=== PATIENT | female | born 1945 | race Caucasian/White ===

== ENCOUNTER 2022-05-13 07:31 | Inpatient (IN) ==
[2022-05-13] MEDS ORDERED: 0.9 % SODIUM CHLORIDE 1,000 ML IV ONE ×2 (07:42→07:43)
[2022-05-13 08:10] LABS: POC Calcium, Ionized 1.09 (1.16-1.32); POC Creatinine 1.2 (0.6-1.2); POC Potassium 3.2 (3.3-5.1)
[2022-05-13] MEDS: ONDANSETRON 4 MG/2 ML VIAL IV ONE ×2 (08:15→09:30)
--- NOTE | 2022-05-13 08:24 | Emergency Department Note ---
HPI General Chief complaint: Nausea/Vomiting/Diarrhea Stated complaint: nausea/vomiting/diarrhea, hypotensive Time Seen by Provider: 05/13/22 07:43 Source: patient and EMS Mode of arrival: EMS Limitations: no limitations History of Present Illness HPI Narrative: Narrative: Patient presents to the ED via EMS with complaints of hypotension. Patient was found to have systolic blood pressure less than 90 in the field. EMS was called because patient said that she fell this morning but does not know if she hit her head or lost consciousness. She reports she just feels weak. She reports nausea vomiting diarrhea over the last 3 days but states she did not have any today. She denies fever, chills, hematemesis, melena, hematochezia, dysuria, hematuria, urinary frequency. She denies any history of hypertension or antihypertensive medication. Patient reports decreased appetite. Patient denies any other alleviating or aggravating factors. Related Data Previous Rx's Medication Instructions Recorded pen needle, diabetic 33 gauge x #200 ea 10/24/18/16" (Comfort EZ Pen Mullan) insulin aspart U-100 100 unit/mL 50 unit (0.5 mL) subcut QHS #15 mL 03/27/21 (3 mL) subcutaneous pen (Novolog FlexPen U-100 Insulin aspart) clobetasol 0.05 % topical cream 1 applic topical BID 2 weeks #30 09/10/21 grams insulin aspart U-100 100 unit/mL 17 unit (0.17 mL) subcut TID 10/02/21 (3 mL) subcutaneous pen (Novolog diabetes #15 mL FlexPen U-100 Insulin aspart) cholecalciferol (vitamin D3) 1,250 50,000 unit PO QWEEK #12 caps 02/24/22 mcg (50,000 unit) capsule atorvastatin 40 mg tablet 40 mg PO QDAY #90 tabs 03/12/22 sertraline 50 mg tablet 50 mg PO QDAY #90 tabs 03/12/22 insulin glargine 100 unit/mL (3 45 unit (0.45 mL) subcut QPM #15 mL 03/27/22 mL) subcutaneous pen levothyroxine 125 mcg tablet 125 mcg PO QDAY #90 tabs 04/07/22 Allergies Allergy/AdvReac Type Severity Reaction Status Date / Time hydrocodone Allergy Intermediate Rash Verified 02/10/22 13:55 Penicillins Allergy Intermediate Rash Verified 02/10/22 13:55 metformin AdvReac Severe Nausea Verified 02/10/22 13:55 Review of Systems ROS ROS Narrative: Narrative: All systems ED: reviewed and negative except as stated. PFS Narrative Patient History Narrative: Narrative: Medical/Surgical/Family History All Active Problems (Updated 05/13/22 @ 12:22 by Marcial Hawthorne DO) Sepsis (Acute) Acute UTI (Acute) Nausea vomiting and diarrhea (Acute) Acute hypokalemia (Acute) Toenail deformity (Acute) Periorbital edema of left eye (Acute) Photophobia (Acute) Left eye pain (Acute) Medicare annual wellness visit, initial (Acute) Bronchiectasis (Chronic) Pulmonary fibrosis (Acute) JANE positive (Acute) Rash (Acute) Constipation (Chronic) Vitamin D deficiency (Acute) Gastroesophageal reflux disease (Chronic) Restrictive lung disease (Chronic) Wellness examination (Chronic) History of tobacco use (Chronic) Thyroid disease (Chronic) DMII (diabetes mellitus, type 2) (Chronic) Depression (Chronic) Arthritis (Chronic) Anxiety (Chronic) Medical History Abnormal immunological finding in serum JANE positive Anxiety Arthritis Bronchiectasis Constipation Daytime sleepiness Depression DMII (diabetes mellitus, type 2) dx about 20 years ago DIAZ (dyspnea on exertion) Gastroesophageal reflux disease History of tobacco use pt denies this. states lived with a smoker Left eye pain Lung disorder (~09/2008) Medicare annual wellness visit, initial Pain of right side of body Periorbital edema of left eye Photophobia Pulmonary fibrosis Restrictive lung disease Thyroid disease many years Toenail deformity Wellness examination 05/03/17 Surgical History H/O colonoscopy 02/04/17 H/O thyroidectomy pt denies this H/O total hysterectomy 1985 Family History Father Arthritis Diabetes Mother Arthritis Breast cancer Seizures Social History Smoking Status: Never smoker Alcohol Intake Frequency: does not drink Substance Use: does not use Exam Narrative Narrative: Narrative: General Limitations: no limitations General appearance: Absent in distress Head Head: Present atraumatic and normocephalic Eye Eye: Present PERRL and EOMI ENT ENT: Present normal oropharynx and mucous membranes dry Neck Neck: Present normal inspection; Absent meningismus Chest Chest: Present tenderness (Right ribs) Respiratory Respiratory: Present normal lung sounds bilaterally; Absent respiratory distress Cardiovascular Cardiovascular: Present normal rhythm and tachycardia Adbominal Abdominal: Present soft; Absent tenderness Extremities Extremities: Present normal capillary refill Neurological Neurological: Present alert and oriented X3 Psychiatric Psychiatric: Present normal affect and normal mood Skin Skin: Present warm (WNL) and intact Course Course Course Narrative: Patient was evaluated for weakness with nausea vomiting diarrhea. She was negative for COVID and flu. Patient was hypotensive with systolic blood pressure less than 85. Lactic acid was elevated. Patient bolused IV fluids. UA and blood cultures were obtained. Patient given IV Rocephin and vancomycin. Urine showed that patient has a UTI. There was concern for C. difficile so stool sample sent off but came back negative. Patient blood pressure improved then she had another bowel movement and her blood pressure dropped. Progress within normal eyes within normal limits. Patient given IV Zofran and her nausea and vomiting improved. Patient also had a fall earlier today so a CT of the head and neck obtained with image reviewed myself was negative. She was complaining of right-sided rib pain so x-ray of the ribs and chest were obtained with image reviewed myself self with no acute bony abnormalities. Patient does have worsening chronic lung disease. Patient does meet criteria for septic shock with hypotension, tachycardia, tachypnea and source of infection. Believe patient will benefit from admission to the hospital as she is not a safe discharge at this time due to her weakness. Discussed with hospitalist who has agreed to admit the patient. Reevaluation(s) Reevaluation #1: Patient remains hemodynamic stable. No new complaints at this time. Time: 09:00 Consultations Consultation #1: Case discussed with hospitalist, Dr. White, who was agreed to admit the patient. Time: 12:35 Vital Signs Vital signs: Vital Signs Temperature 97.2 F 05/13/22 07:40 Pulse Rate 112 H 05/13/22 07:40 Respiratory Rate 24 H 05/13/22 07:40 Blood Pressure 83/51 05/13/22 07:40 Pulse Oximetry (%) 94 05/13/22 07:40 Oxygen Delivery Method Room Air 05/13/22 07:40 Temperature 97.2 F 05/13/22 07:40 Pulse Rate 93 H 05/13/22 12:15 Respiratory Rate 20 05/13/22 12:15 Blood Pressure 107/77 05/13/22 12:15 Pulse Oximetry (%) 96 05/13/22 12:15 Oxygen Delivery Method Nasal Cannula 05/13/22 10:31 Oxygen Flow Rate (L/min) 2 05/13/22 10:31 MDM MDM Narrative Medical decision making narrative: Narrative: Differential Diagnosis Differential Diagnosis: Sepsis, viral illness, UTI, rib fracture, pneumonia Medical Records Medical records reviewed: Yes I reviewed the patient's medical records. Lab Data Lab results reviewed: Yes I reviewed the patient's lab results. 05/13/22 08:00 Labs: Lab Results 05/13/22 05/13/22 05/13/22 Range/Units 07:55 07:57 08:00 WBC 10.3 (4.5-11.0) K/mcL RBC 4.80 (3.59-5.38) M/mcL Hgb 13.1 (11.2-15.7) g/dL Hct 40.8 (34.1-44.9) % POC Hct 40.0 (36-48) MCV 85.0 (80.0-100.0) fL MCH 27.3 (26.0-34.0) pg MCHC 32.1 (31.0-36.0) g/dL RDW 13.7 (11.5-14.5) % Plt Count 243 (140-440) K/mcL MPV 10.3 (8.8-12.5) fL Immature Gran % (Auto) 0.3 (0.0-0.5) % Neut % (Auto) 64.4 (38.0-78.0) % Lymph % (Auto) 24.2 (15.5-49.0) % White % (Auto) 6.4 (1.0-12.0) % Eos % (Auto) 4.1 (0.0-7.0) % Baso % (Auto) 0.6 (0.0-2.0) % Lymph # (Auto) 2.48 (1.50-4.80) K/mcL White # (Auto) 0.66 (0.10-0.90) K/mcL Eos # (Auto) 0.42 (0.00-0.70) K/mcL Baso # (Auto) 0.06 (0.00-0.30) K/mcL Immature Gran # 0.03 (0.00-0.05) K/mcl Absolute Neutrophils 6.60 (1.80-8.00) K/mcL POC VBG pH (7.32-7.42) POC VBG pCO2 at Temp (41-51) POC VBG pO2 (25-40) POC VBG HCO3 (24-28) POC VBG Total CO2 (25-29) POC Venous O2 Sat (40-70) POC VBG Base Excess (-2-2) VBG Lactic Acid (0.5-2) POC Sodium 140 (133-145) POC Potassium 3.2 L (3.3-5.1) POC Chloride 104 (96-108) POC Total CO2 22.0 (22-30) POC BUN 17 (6-20) POC Creatinine 1.2 (0.6-1.2) POC Glucose 265 H (70-105) POC WB Ioniz Calcium 1.09 L (1.16-1.32) Urine Color Urine Appearance (Clear) Urine pH (5.0-9.0) Ur Specific [place] (1.000-1.035) Urine Protein (Negative) mg/dL Urine Glucose (UA) (Negative) mg/dL Urine Ketones (Negative) mg/dL Urine Occult Blood (Negative) mg/dL Urine Nitrate (Negative) Urine Bilirubin (Negative) mg/dL Urine Urobilinogen mg/dL Ur Leukocyte Esterase (Negative) /uL Urine RBC (0-3) /hpf Urine WBC (0-4) /hpf Ur Squamous Epith Cells (0-4) /hpf Urine Bacteria (0) /hpf Hyaline Casts (0-2) /lph Urine Mucus (None) /hpf Ur Culture Indicated? POC Troponin I < 0.02 (0.00-0.08) 05/13/22 05/13/22 05/13/22 Range/Units 08:56 10:00 11:46 WBC (4.5-11.0) K/mcL RBC (3.59-5.38) M/mcL Hgb (11.2-15.7) g/dL Hct (34.1-44.9) % POC Hct (36-48) MCV (80.0-100.0) fL MCH (26.0-34.0) pg MCHC (31.0-36.0) g/dL RDW (11.5-14.5) % Plt Count (140-440) K/mcL MPV (8.8-12.5) fL Immature Gran % (Auto) (0.0-0.5) % Neut % (Auto) (38.0-78.0) % Lymph % (Auto) (15.5-49.0) % White % (Auto) (1.0-12.0) % Eos % (Auto) (0.0-7.0) % Baso % (Auto) (0.0-2.0) % Lymph # (Auto) (1.50-4.80) K/mcL White # (Auto) (0.10-0.90) K/mcL Eos # (Auto) (0.00-0.70) K/mcL Baso # (Auto) (0.00-0.30) K/mcL Immature Gran # (0.00-0.05) K/mcl Absolute Neutrophils (1.80-8.00) K/mcL POC VBG pH 7.31 L 7.32 (7.32-7.42) POC VBG pCO2 at Temp 40.2 L 42.7 (41-51) POC VBG pO2 17 L 16 L (25-40) POC VBG HCO3 20.0 L 21.8 L (24-28) POC VBG Total CO2 21.0 L 23.0 L (25-29) POC Venous O2 Sat 21.0 L 20.0 L (40-70) POC VBG Base Excess -6.0 L -4.0 L (-2-2) VBG Lactic Acid 2.2 H 2.1 H (0.5-2) POC Sodium (133-145) POC Potassium (3.3-5.1) POC Chloride (96-108) POC Total CO2 (22-30) POC BUN (6-20) POC Creatinine (0.6-1.2) POC Glucose (70-105) POC WB Ioniz Calcium (1.16-1.32) Urine Color Yellow Urine Appearance Hazy A (Clear) Urine pH 5.0 (5.0-9.0) Ur Specific [place] 1.009 (1.000-1.035) Urine Protein Negative (Negative) mg/dL Urine Glucose (UA) 150 A (Negative) mg/dL Urine Ketones 5 A (Negative) mg/dL Urine Occult Blood 0.03 (Negative) mg/dL Urine Nitrate Pos A (Negative) Urine Bilirubin Negative (Negative) mg/dL Urine Urobilinogen Negative mg/dL Ur Leukocyte Esterase 75 A (Negative) /uL Urine RBC 2 (0-3) /hpf Urine WBC 5 H (0-4) /hpf Ur Squamous Epith Cells 0 (0-4) /hpf Urine Bacteria Mod A (0) /hpf Hyaline Casts 3 H (0-2) /lph Urine Mucus Few A (None) /hpf Ur Culture Indicated? Yes POC Troponin I (0.00-0.08) EKG Data EKG #1: EKG attestation: Yes I reviewed and interpreted this EKG. EKG shows normal: sinus rhythm Rate: tachycardia (109) Rhythm: NSR [place]/QRS: LAHB/LAFB P waves: LAE Heart block present: None ST segment elevation in: None ST segment depression in: None QTc: normal QRS morphology: Present normal Interpretation: no acute changes and nonspecific ST-T wave changes Core Measures AMI Core Measures Followed: Yes Discharge Plan Patient/Caregiver Discharge Instructions Pt seen by MAIL TRUCK DRIVER/PA only: No Clinical Impression: Acute UTI, Nausea vomiting and diarrhea, Acute hypokalemia Sepsis Qualifiers: Sepsis type: sepsis due to unspecified organism Sepsis acute organ dysfunction status: with acute organ dysfunction Severe sepsis acute organ dysfunction type: unspecified Severe sepsis shock status: with septic shock Qualified Code(s): A41.9 - Sepsis, unspecified organism Patient Disposition: Xfer As Outpt/Obs ([facility]) Condition: Fair Follow up with: Corrina Bhatia DO [Primary Care Provider] - Prescriptions: No Action (DME) Comfort EZ Pen Mullan 33 gauge x 5/16" needle See Dose Instructions .ROUTE .MEDSUPPLY Qty: 200 0RF Dose Instruction: As directed Rx Instructions: qid clobetasol 0.05 % cream 1 applic TOPICAL BID 14 Days Qty: 30 1RF insulin aspart U-100 [Novolog FlexPen U-100 Insulin] 100 unit/mL (3 mL) insulin pen 17 unit SUB-Q TID Qty: 15 3RF cholecalciferol (vitamin D3) 1,250 mcg (50,000 unit) capsule 50,000 unit PO QWEEK Qty: 12 1RF sertraline 50 mg tablet 50 mg PO QDAY Qty: 90 0RF atorvastatin 40 mg tablet 40 mg PO QDAY Qty: 90 0RF insulin glargine 100 unit/mL (3 mL) insulin pen 45 unit subcut QPM Qty: 15 2RF levothyroxine 125 mcg tablet 125 mcg PO QDAY Qty: 90 0RF insulin aspart U-100 [Novolog FlexPen U-100 Insulin] 100 unit/mL (3 mL) insulin pen 50 unit subcut QHS Qty: 15 3RF
[2022-05-13 09:02] LABS: Basophils # (Auto) 0.06 K/mcL (0.00-0.30); Basophils % (Auto) 0.6 % (0.0-2.0); Eosinophils # (Auto) 0.42 K/mcL (0.00-0.70); Eosinophils % (Auto) 4.1 % (0.0-7.0); Hematocrit 40.8 % (34.1-44.9); Hemoglobin 13.1 g/dL (11.2-15.7); Lymphocytes # (Auto) 2.48 K/mcL (1.50-4.80); Lymphocytes % (Auto) 24.2 % (15.5-49.0); Mean Corpuscular HGB Conc 32.1 g/dL (31.0-36.0); Mean Platelet Volume 10.3 fL (8.8-12.5); Monocytes # (Auto) 0.66 K/mcL (0.10-0.90); Monocytes % (Auto) 6.4 % (1.0-12.0); Neutrophils % (Auto) 64.4 % (38.0-78.0); Platelet Count 243 K/mcL (140-440); Red Cell Distribution Width 13.7 % (11.5-14.5); WBC 10.3 K/mcL (4.5-11.0)
--- NOTE | 2022-05-13 09:26 | XRay Report ---
HISTORY: Fell with right rib pain FINDINGS: There are mild contour deformities near the costochondral junction of the right seventh and 10th rib and the lateral aspect of the right sixth rib. These appear to be old healed fractures. An acute fracture is not detected. There is no pneumothorax or pleural effusion. Patient has severe diffuse interstitial lung disease which has become significantly worse since 11/25/17. IMPRESSION: Old healed fractures in the sixth, seventh and 10th ribs Worsening pulmonary fibrosis and inflammation Dr. Hawthorne was called with the report Interpreted and Authenticated by: Luis Howard 05/13/22
--- NOTE | 2022-05-13 09:26 | Cat Scan Report ---
History: Fell with neck and head injuries TECHNIQUE: The cervical spine was imaged without contrast in axial plane at 2.5 mm intervals from the skull base through the thoracic inlet. Sagittal and coronal reformats were created. The radiation exposure was limited using dose reduction technology. FINDINGS: The cervico-occipital junction is normal. There is no fracture or spondylolisthesis. There is severe arthritis at the articulation of the odontoid and anterior ring of C1. Severe disc space narrowing is present at C4-5 and there is moderate narrowing at C3-4. Milder disc space narrowing is seen at C5-6 and C6-7. There are small osteophytes forming along the margins of the discs. There is moderate spurring of the uncinate processes on the left side at C3-4, C4-5 and C6-7 with milder spurring on the right at C4-5 and C6-7. This is causing stenosis of the neural foramina. There is no significant spinal canal stenosis. No paraspinal mass or hematoma are present. Moderate amount calcified plaque is present in the carotid bifurcations bilaterally. There is moderate interstitial fibrosis and inflammation in both upper lobes. This has progressed since prior chest CT performed on 04/25/19. 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 Hawthorne was called with the report Interpreted and Authenticated by: Luis Howard 05/13/22
--- NOTE | 2022-05-13 09:26 | Cat Scan Report ---
History: Fell with head and neck injuries TECHNIQUE: The brain was imaged without contrast in axial plane at 2.5 mm intervals. Sagittal and coronal reformats were created. The radiation exposure was limited using dose reduction technology. FINDINGS: There is moderate generalized cerebral atrophy, most apparent in the frontal lobes and around the sylvian fissures. There is mild dilatation of lateral and third ventricles. This is proportionate to the atrophy. No intracranial hemorrhage is present. There is no evidence of an infarct, edema or mass effect. No abnormal extra-axial fluid collection is present. There are multiple physiologic calcifications in the globus pallidus bilaterally. Moderate amount of calcified plaque is seen in the cavernous portions of both internal carotids. Bone windows show no skull fracture. The visualized sinuses are clear. IMPRESSION: No evidence of acute head injury Age-related degenerative changes with moderate atrophy Dr. Hawthorne was called with the report Interpreted and Authenticated by: Luis Howard 05/13/22
[2022-05-13] MEDS ORDERED: cefTRIAXone 2 GM in DEXTROSE 5% IN WATER 50 ML IV ONE (10:05)
[2022-05-13] MEDS ORDERED: VANCOMYCIN PER PHARMACY IV ONE (10:05)
[2022-05-13] MEDS ORDERED: VANCOMYCIN 1,000 MG in 0.9 % SODIUM CHLORIDE 250 ML IV ONE (10:15)
[2022-05-13] MEDS ORDERED: 0.9 % SODIUM CHLORIDE 1,000 ML IV SCH (10:45)
[2022-05-13 11:25] LABS: Appearance,Urine HAZY (Clear); Bacteria,Urine MOD /hpf (0); Bilirubin,Urine Negative (Negative); Color,Urine YELLOW; Culture Indicated,Urine Yes; Glucose,Urine (UA) 150 mg/dL (Negative); Ketones,Urine 5 mg/dL (Negative); Leukocyte Esterase,Urine 75 /uL (Negative); Mucus,Urine FEW /hpf; Nitrate,Urine POS (Negative); Protein,Urine Negative (Negative); Specific Gravity,Urine 1.009 (1.000-1.035); Urine Blood 0.03 mg/dL (Negative); Urine Hyaline Cast 3 /lph (0-2); Urine RBC 2 /hpf (0-3); Urine Squamous Epithelial Cell 0 /hpf (0-4); Urine WBC 5 /hpf (0-4); Urobilinogen,Urine Negative
[2022-05-13] MEDS ORDERED: ACETAMINOPHEN 325 MG TABLET PO ONE (11:57)
[2022-05-13] MEDS ORDERED: LACTULOSE 20 GM/30 ML ORAL.SOL PO PRN (14:30)
[2022-05-13] MEDS ORDERED: SENNOSIDES 1 TABLET PO PRN (14:30)
[2022-05-13] MEDS ORDERED: ONDANSETRON 4 MG/2 ML VIAL IV PRN (14:30)
[2022-05-13] MEDS ORDERED: DEXTROSE 31 GM ORAL.SUSP PO PRN (14:43)
[2022-05-13] MEDS ORDERED: DEXTROSE 50% 50 ML VIAL IV PRN (14:43)
[2022-05-13] MEDS: LACTATED RINGERS 1,000 ML IV SCH (14:54)
--- NOTE | 2022-05-13 14:59 | Internal Med History&Physical ---
HPI History of Present Illness Patient information: Note initiated : 05/13/22 at 2:55 pm Service Date, if different from initiated Date: [] Patient: Bailey Richardson a 76 y/o F admitted on 05/13/22 for nausea/vomiting/diarrhea, hypotensive. Chief Complaint: [Nausea, vomiting, diarrhea] Chief complaint: Nausea, vomiting, diarrhea History of present illness: Ms. Richardson is a 76 year old F with a past medical history significant for insulin-dependent diabetes, hyperlipidemia, hypothyroidism, and depression who presents to the hospital with complaints of nausea, vomiting, diarrhea. The patient is a poor historian. She denies a productive cough, or dysuria. History is mainly obtained secondhand from chart review and from nursing. She was brought into the ER where she was found to be hypotensive with a systolic blood pressure that was 85. UA was grossly abnormal and there was concerns for urosepsis. C. difficile was also sent out however was negative. CT of the head was unrevealing. The patient was bolused with IV fluids and given IV Zofran and IV ceftriaxone. The hospitalist service was asked admit the patient for further management and evaluation. Review of Systems All systems: reviewed and no additional remarkable complaints except as stated Constitutional Constitutional: Present as per HPI EENT Eyes: Present as per HPI; Absent blurry vision Cardiovascular Cardiovascular: Present as per HPI; Absent chest pain, dyspnea, dyspnea on exertion, leg edema or palpatations Respiratory Respiratory: Present as per HPI; Absent cough, dyspnea, dyspnea on exertion, wheezing or stridor Gastrointestinal Gastrointestinal: Present as per HPI; Absent abdominal pain, diarrhea, dysphagia, hematemesis, melena, nausea or vomiting Musculoskeletal Musculoskeletal: Present as per HPI; Absent joint swelling, limited range of motion, muscle cramps, muscle weakness or myalgias Integumentary Integumentary: Present as per HPI; Absent erythema, new lesions, rash or wounds Neurological Neurological: Present as per HPI; Absent abnormal gait, behavioral changes, focal weakness, headache(s), loss of vision, numbness, sensory deficit or syncope Endocrine Endocrine: Absent change in body appearance, fatigue or heat intolerance Hematologic/Lymphatic Hematologic/Lymphatic: Present as per HPI PFSH PFSH All Active Problems (Updated 05/13/22 @ 12:22 by Marcial Hawthorne DO) Sepsis (Acute) Acute UTI (Acute) Nausea vomiting and diarrhea (Acute) Acute hypokalemia (Acute) Toenail deformity (Acute) Periorbital edema of left eye (Acute) Photophobia (Acute) Left eye pain (Acute) Medicare annual wellness visit, initial (Acute) Bronchiectasis (Chronic) Pulmonary fibrosis (Acute) JANE positive (Acute) Rash (Acute) Constipation (Chronic) Vitamin D deficiency (Acute) Gastroesophageal reflux disease (Chronic) Restrictive lung disease (Chronic) Wellness examination (Chronic) History of tobacco use (Chronic) Thyroid disease (Chronic) DMII (diabetes mellitus, type 2) (Chronic) Depression (Chronic) Arthritis (Chronic) Anxiety (Chronic) Medical History Abnormal immunological finding in serum JANE positive Anxiety Arthritis Bronchiectasis Constipation Daytime sleepiness Depression DMII (diabetes mellitus, type 2) dx about 20 years ago DIAZ (dyspnea on exertion) Gastroesophageal reflux disease History of tobacco use pt denies this. states lived with a smoker Left eye pain Lung disorder (~09/2008) Medicare annual wellness visit, initial Pain of right side of body Periorbital edema of left eye Photophobia Pulmonary fibrosis Restrictive lung disease Thyroid disease many years Toenail deformity Wellness examination 05/03/17 Surgical History H/O colonoscopy 02/04/17 H/O thyroidectomy pt denies this H/O total hysterectomy 1985 Family History Father Arthritis Diabetes Mother Arthritis Breast cancer Seizures Social History marital status: other: Children-4 smoking status: Never smoker alcohol intake frequency: does not drink substance use type: does not use MEDS/ALLERGIES Home Medications and Allergies Home Medications Medication Instructions Recorded Confirmed Type pen needle, diabetic 33 gauge x #200 ea 10/24/18 05/13/22 Rx 5/16" (Comfort EZ Pen [place]) insulin aspart U-100 100 unit/mL 50 unit (0.5 mL) subcut QHS #15 mL 03/27/21 02/10/22 Rx (3 mL) subcutaneous pen (Novolog FlexPen U-100 Insulin aspart) insulin aspart U-100 100 unit/mL 17 unit (0.17 mL) subcut TID 10/02/21 05/13/22 Rx (3 mL) subcutaneous pen (Novolog diabetes #15 mL FlexPen U-100 Insulin aspart) cholecalciferol (vitamin D3) 1,250 50,000 unit PO QWEEK #12 caps 02/24/22 05/13/22 Rx mcg (50,000 unit) capsule atorvastatin 40 mg tablet 40 mg PO QDAY #90 tabs 03/12/22 05/13/22 Rx sertraline 50 mg tablet 50 mg PO QDAY #90 tabs 03/12/22 05/13/22 Rx insulin glargine 100 unit/mL (3 45 unit (0.45 mL) subcut QPM #15 mL 03/27/22 05/13/22 Rx mL) subcutaneous pen levothyroxine 125 mcg tablet 125 mcg PO QDAY #90 tabs 04/07/22 05/13/22 Rx Allergies Allergy/AdvReac Type Severity Reaction Status Date / Time hydrocodone Allergy Intermediate Rash Verified 02/10/22 13:55 Penicillins Allergy Intermediate Rash Verified 02/10/22 13:55 metformin AdvReac Severe Nausea Verified 02/10/22 13:55 EXAM Constitutional Vitals: Temp Pulse Resp BP Pulse Ox O2 Del Method O2 Flow Rate 97.2 F 87 23 H 112/61 98 Nasal Cannula 2 05/13/22 14:34 05/13/22 14:34 05/13/22 14:34 05/13/22 14:34 05/13/22 14:34 05/13/22 10:31 05/13/22 10:31 General appearance: average body habitus Head Head exam: Present atraumatic, normal inspection and normocephalic Eye Eye exam: Present EOMI, normal appearance and PERRL; Absent conjunctival injection ENT ENT exam: Present normal exam; Absent mucous membranes dry Neck Neck exam: Present full ROM; Absent lymphadenopathy Respiratory Respiratory exam: Present normal respiratory exam and CTAB; Absent decreased breath sounds, respiratory distress or wheezes Cardiovascular Cardiovascular exam: Present normal rate and rhythm and RRR; Absent JVD GI/Abdominal GI/Abdominal exam: Present normal bowel sounds and soft; Absent diminished bowel sounds, distended, guarding, mass, rebound or tenderness Neurological Exam Neurological exam: Present alert, CN II-XII intact and oriented X3 Psychiatric Psychiatric exam: Present normal affect and normal mood Skin Skin exam: Present intact and warm; Absent erythema, pallor, petechiae or rash DATA Data Completed and Pending Labs: Labs from last 24 hours 05/13/22 05/13/22 05/13/22 11:46 10:00 08:56 WBC RBC Hgb Hct POC Hct MCV MCH MCHC RDW Plt Count MPV Immature Gran % (Auto) Neut % (Auto) Lymph % (Auto) [place] % (Auto) Eos % (Auto) Baso % (Auto) Lymph # (Auto) [place] # (Auto) Eos # (Auto) Baso # (Auto) Immature Gran # Absolute Neutrophils POC VBG pH 7.32 7.31 L POC VBG pCO2 at Temp 42.7 40.2 L POC VBG pO2 16 L 17 L POC VBG HCO3 21.8 L 20.0 L POC VBG Total CO2 23.0 L 21.0 L POC Venous O2 Sat 20.0 L 21.0 L POC VBG Base Excess -4.0 L -6.0 L VBG Lactic Acid 2.1 H 2.2 H POC Sodium POC Potassium POC Chloride POC Total CO2 POC BUN POC Creatinine POC Glucose POC WB Ioniz Calcium Urine Color Yellow Urine Appearance Hazy A Urine pH 5.0 Ur Specific [place] 1.009 Urine Protein Negative Urine Glucose (UA) 150 A Urine Ketones 5 A Urine Occult Blood 0.03 Urine Nitrate Pos A Urine Bilirubin Negative Urine Urobilinogen Negative Ur Leukocyte Esterase 75 A Urine RBC 2 Urine WBC 5 H Ur Squamous Epith Cells 0 Urine Bacteria Mod A Hyaline Casts 3 H Urine Mucus Few A Ur Culture Indicated? Yes POC Troponin I 05/13/22 05/13/22 05/13/22 08:00 07:57 07:55 WBC 10.3 RBC 4.80 Hgb 13.1 Hct 40.8 POC Hct 40.0 MCV 85.0 MCH 27.3 MCHC 32.1 RDW 13.7 Plt Count 243 MPV 10.3 Immature Gran % (Auto) 0.3 Neut % (Auto) 64.4 Lymph % (Auto) 24.2 [place] % (Auto) 6.4 Eos % (Auto) 4.1 Baso % (Auto) 0.6 Lymph # (Auto) 2.48 [place] # (Auto) 0.66 Eos # (Auto) 0.42 Baso # (Auto) 0.06 Immature Gran # 0.03 Absolute Neutrophils 6.60 POC VBG pH POC VBG pCO2 at Temp POC VBG pO2 POC VBG HCO3 POC VBG Total CO2 POC Venous O2 Sat POC VBG Base Excess VBG Lactic Acid POC Sodium 140 POC Potassium 3.2 L POC Chloride 104 POC Total CO2 22.0 POC BUN 17 POC Creatinine 1.2 POC Glucose 265 H POC WB Ioniz Calcium 1.09 L Urine Color Urine Appearance Urine pH Ur Specific [place] Urine Protein Urine Glucose (UA) Urine Ketones Urine Occult Blood Urine Nitrate Urine Bilirubin Urine Urobilinogen Ur Leukocyte Esterase Urine RBC Urine WBC Ur Squamous Epith Cells Urine Bacteria Hyaline Casts Urine Mucus Ur Culture Indicated? POC Troponin I < 0.02 A/P Assessment and plan (1) Sepsis: Status: Acute Qualifiers: Sepsis acute organ dysfunction status: with acute organ dysfunction Sepsis type: sepsis due to unspecified organism Severe sepsis acute organ dysfunction type: unspecified Severe sepsis shock status: with septic shock Qualified Code(s): A41.9 - Sepsis, unspecified organism; R65.21 - Severe sepsis with septic shock (2) Acute UTI: Status: Acute (3) Nausea vomiting and diarrhea: Status: Acute (4) Pulmonary fibrosis: Status: Acute (5) DMII (diabetes mellitus, type 2): Status: Chronic Comment: dx about 20 years ago Qualifiers: Diabetes mellitus skilled nursing insulin use: unspecified skilled nursing insulin use status Diabetes mellitus complication status: with unspecified complications Qualified Code(s): E11.8 - Type 2 diabetes mellitus with unspecified complications (6) Depression: Status: Chronic (7) Thyroid disease: Status: Chronic Comment: many years Narrative A/P Narrative: The patient's white blood cell count was within normal limits and there is no evidence of acute kidney injury. She did have lactic acidosis with a lactic acid of 2.1. She was resuscitated with IV fluids and we will continue LR at 100 cc an hour. She will be switched to cefepime 2 g IV every 8 hours and vancomycin for empiric coverage. Follow-up on urine culture and blood cultures. Of note, the patient has lung fibrosis and repeat chest x-ray reveals worsening parenchymal lung disease. She is currently requiring supplemental O2. Continue DuoNebs and budesonide nebulizers. Medication reconciliation is pending. Of note per my code discussion, the patient would like to be full code. Time Spent With Patient Time: Total time spent is greater than 50% in coordination of care (as documented) at patient's floor/unit and/or counseling patient: Initial: Total time with patient: 75 - 90 minutes
[2022-05-13] MEDS: 0.9 % SODIUM CHLORIDE 10 ML SYRINGE IV SCH ×3 (15:44→20:28)
[2022-05-13] MEDS: CEFEPIME 2 GM VIAL IV SCH ×2 (15:48→21:25)
[2022-05-13] MEDS: INSULIN LISPRO 1 UNIT/0.01 ML UNIT SQ SCH ×2 (17:21→20:27)
--- NOTE | 2022-05-13 17:57 | EKG ---
[facility] Test Date: 2022-05-13 Pat Name: Bailey Richardson Department: ED Room: Gender: Female Senior Foreman: lai : 1945 Requested By: Marcial Hawthorne Order Number: [id number] Reading MD: Armando Garcia Measurements Intervals [place] Rate: 109 P: 27 TN: 161 QRS: -51 QRSD: 103 T: 49 QT: 338 QTc: 456 Interpretive Statements Sinus tachycardia IVCD Electronically Signed On 05-13-2022 17:57:33 PDT by Armando Garcia /store/[email or web address]/[id number]
[2022-05-13] MEDS: DOCUSATE SODIUM 100 MG CAPSULE PO SCH (19:52)
[2022-05-13] MEDS: PHENAZOPYRIDINE 200 MG TABLET PO PRN (20:27)
[2022-05-13] MEDS: VANCOMYCIN 1,000 MG in 0.9 % SODIUM CHLORIDE 250 ML IV SCH (21:25)
[2022-05-13] MEDS: BUDESONIDE 0.5 MG/2 ML AMPUL.NEB NEB SCH (22:00)
[2022-05-13] MEDS: IPRATROPIUM/ALBUTEROL 3 ML AMPUL.NEB NEB SCH (22:00)
[2022-05-13] MEDS: ACETAMINOPHEN 325 MG TABLET PO PRN (23:34)
[2022-05-14] MEDS: LACTATED RINGERS 1,000 ML IV SCH ×2 (01:28→08:48)
[2022-05-14] MEDS: IPRATROPIUM/ALBUTEROL 3 ML AMPUL.NEB NEB SCH ×4 (02:12→19:23)
[2022-05-14] MEDS: PHENAZOPYRIDINE 200 MG TABLET PO PRN (04:19)
[2022-05-14] MEDS: 0.9 % SODIUM CHLORIDE 10 ML SYRINGE IV SCH ×3 (05:29→21:40)
[2022-05-14] MEDS: CEFEPIME 2 GM VIAL IV SCH ×3 (05:29→21:39)
[2022-05-14 06:27] LABS: Basophils # (Auto) 0.05 K/mcL (0.00-0.30); Basophils % (Auto) 0.7 % (0.0-2.0); Eosinophils # (Auto) 0.17 K/mcL (0.00-0.70); Eosinophils % (Auto) 2.3 % (0.0-7.0); Hematocrit 34.1 % (34.1-44.9); Hemoglobin 10.1 g/dL (11.2-15.7); Lymphocytes # (Auto) 1.86 K/mcL (1.50-4.80); Lymphocytes % (Auto) 24.8 % (15.5-49.0); Mean Cell Volume 92.2 fL (80.0-100.0); Mean Corpuscular HGB Conc 29.6 g/dL (31.0-36.0); Mean Platelet Volume 9.9 fL (8.8-12.5); Monocytes # (Auto) 0.61 K/mcL (0.10-0.90); Monocytes % (Auto) 8.1 % (1.0-12.0); Neutrophils % (Auto) 63.7 % (38.0-78.0); Platelet Count 160 K/mcL (140-440); Red Cell Distribution Width 13.5 % (11.5-14.5); WBC 7.5 K/mcL (4.5-11.0)
[2022-05-14 06:47] LABS: Blood Urea Nitrogen 14 mg/dL (8-23); Calcium 7.9 mg/dL (8.6-10.4); Carbon Dioxide 19 mmol/L (22-30); Chloride 107 mmol/L (96-108); Glomerular Filtration Rate 71; Glucose 137 mg/dL (70-105)
[2022-05-14] MEDS: BUDESONIDE 0.5 MG/2 ML AMPUL.NEB NEB SCH ×2 (07:00→19:23)
[2022-05-14] MEDS: DOCUSATE SODIUM 100 MG CAPSULE PO SCH ×2 (08:41→20:56)
[2022-05-14] MEDS: INSULIN LISPRO 1 UNIT/0.01 ML UNIT SQ SCH ×4 (08:46→20:57)
--- NOTE | 2022-05-14 09:12 | Internal Med Progress Note ---
SUBJECTIVE Subjective Patient information: Note initiated : 05/14/22 at 9:10 am Service Date, if different from initiated Date: [] Patient: Bailey Richardson 76 y/o F admitted on 05/13/22 for nause a/vomiting/diarrhea, hypotensive. Chief Complaint: [N/V/D] Principal diagnosis: Urinary tract infection Interval history: The patient was complaining of severe dysuria last night. She has ongoing cough from her pulmonary fibrosis. This morning she states that she feels the same. Constitutional Vitals: Vital Signs Temp Pulse Resp BP Pulse Ox O2 Del Method O2 Flow Rate 98.1 F 102 H 22 106/63 96 Nasal Cannula 3 05/14/22 08:00 05/14/22 07:22 05/14/22 08:00 05/14/22 08:00 05/14/22 08:00 05/14/22 08:00 05/14/22 08:00 Period Temp Pulse Resp BP Sys/Woodard Pulse Ox O2 Del Method O2 Flow Rate Last 24 Hr 97.2 F-98.4 F 76-103 12-35 77-126/54-91 91-100 Nasal Cannula- Nasal Cannula 2-3 Intake and Output 05/13/22 05/14/22 05/14/22 19:59 03:59 11:59 Intake Total 305 1850 733 Output Total 250 150 250 Balance 55 1700 483 Weight 57.663 kg Intake & Output: Intake & Output 05/13/22 05/14/22 05/14/22 19:59 03:59 11:59 Intake Total 305 1850 733 Output Total 250 150 250 Balance 55 1700 483 Weight 57.663 kg Intake: IV 305 1250 733 Sodium Chloride 0.9% 1,000 ml @ 305 100 mls/hr IV .Q10H [facility] Rx#: [id number] Lactated Ringers 1,000 ml @ 100 1000 733 mls/hr IV .Q10H [facility] Rx#: [id number] Vancomycin 1,000 mg In Sodium 250 Chloride 0.9% 250 ml @ 250 mls/ hr IV Q12H [facility] Rx#:[id number] Oral 600 Output: Urine Catheter Amount 250 150 250 Other: Meal jello Percent of Meal Consumed 100% Urine Appearance Cloudy Uretheral (Matthews) Cloudy Urine Color Dark Kaila Uretheral (Matthews) Yellow Stool Size Smear Smear Stool Color Brown Brown Stool Consistency Soft # of times incontinent of 1 Bowels Head Head exam: Present atraumatic and normal inspection Eye Eye exam: Present normal appearance ENT ENT exam: Present mucous membranes moist, normal exam and normal external ear exam Neck Neck exam: Present normal inspection Respiratory Respiratory exam: Present accessory muscle use, prolonged expiratory phase, rhonchi and wheezes Cardiovascular Cardiovascular exam: Present normal rate and rhythm GI/Abdominal GI/Abdominal exam: Present normal bowel sounds Back Exam Back exam: Present normal inspection Neurological Exam Neurological exam: Present alert and oriented X3 Skin Skin exam: Present intact and warm OBJ DATA Labs 05/14/22 05:16 05/14/22 05:16 Labs: Abnormal Lab Results 05/14/22 05/14/22 05/13/22 05:16 05:16 15:10 Hgb 10.1 L MCHC 29.6 L POC VBG pH POC VBG pCO2 at Temp POC VBG pO2 POC VBG HCO3 POC VBG Total CO2 POC Venous O2 Sat POC VBG Base Excess VBG Lactic Acid 2.3 H POC Potassium Carbon Dioxide 19 L Glucose 137 H POC Glucose Calcium 7.9 L POC WB Ioniz Calcium Urine Appearance Urine Glucose (UA) Urine Ketones Urine Nitrate Ur Leukocyte Esterase Urine WBC Urine Bacteria Hyaline Casts Urine Mucus 05/13/22 05/13/22 05/13/22 11:46 10:00 08:56 Hgb MCHC POC VBG pH 7.31 L POC VBG pCO2 at Temp 40.2 L POC VBG pO2 16 L 17 L POC VBG HCO3 21.8 L 20.0 L POC VBG Total CO2 23.0 L 21.0 L POC Venous O2 Sat 20.0 L 21.0 L POC VBG Base Excess -4.0 L -6.0 L VBG Lactic Acid 2.1 H 2.2 H POC Potassium Carbon Dioxide Glucose POC Glucose Calcium POC WB Ioniz Calcium Urine Appearance Hazy A Urine Glucose (UA) 150 A Urine Ketones 5 A Urine Nitrate Pos A Ur Leukocyte Esterase 75 A Urine WBC 5 H Urine Bacteria Mod A Hyaline Casts 3 H Urine Mucus Few A 05/13/22 07:55 Hgb MCHC POC VBG pH POC VBG pCO2 at Temp POC VBG pO2 POC VBG HCO3 POC VBG Total CO2 POC Venous O2 Sat POC VBG Base Excess VBG Lactic Acid POC Potassium 3.2 L Carbon Dioxide Glucose POC Glucose 265 H Calcium POC WB Ioniz Calcium 1.09 L Urine Appearance Urine Glucose (UA) Urine Ketones Urine Nitrate Ur Leukocyte Esterase Urine WBC Urine Bacteria Hyaline Casts Urine Mucus Meds: Medications Acetaminophen (Acetaminophen 325 Mg Tablet) 650 mg PO Q6HP PRN; Protocol PRN Reason: Per Pain Protocol/Fever > 101 Last Admin: 05/13/22 23:34 Dose: 650 mg Albuterol/Ipratropium (Ipratropium/Albuterol 3 Ml Ampul.Neb) 3 ml NEB Q6HRT [facility] Last Admin: 05/14/22 07:00 Dose: 3 ml Benzonatate (Benzonatate 100 Mg Capsule) 200 mg PO TIDP PRN PRN Reason: Cough Budesonide (Budesonide 0.5 Mg/2 Ml Ampul.Neb) 0.5 mg NEB Q12 [facility] Last Admin: 05/14/22 07:00 Dose: 0.5 mg Cefepime HCl (Cefepime 2 Gm Vial) 2 gm IV Q8H [facility]; Protocol Last Admin: 05/14/22 05:29 Dose: 2 gm Dextrose (Dextrose 50% 50 Ml Vial) 0 ml IV UD PRN PRN Reason: Per Sliding Scale Diagnostic Test (Pha) (Accu-Chek 1 Each Strip) 1 each FS ACHS [facility] Last Admin: 05/14/22 07:55 Dose: 1 each Docusate Sodium (Docusate Sodium 100 Mg Capsule) 100 mg PO BID [facility] Last Admin: 05/14/22 08:41 Dose: Not Given Enoxaparin Sodium (Enoxaparin 40 Mg/0.4 Ml Syringe) 40 mg SQ DAILY [facility] Glucose (Dextrose 31 Gm Oral.Susp) 15 gm PO PRN PRN PRN Reason: Hypoglycemia Guaifenesin (Guaifenesin 600 Mg Tab.Sr.12h) 600 mg PO BIDP PRN PRN Reason: Congestion Lactated Ringer's (Lactated Ringers) 1,000 mls @ 100 mls/hr IV .Q10H [facility] Last Admin: 05/14/22 08:48 Dose: 100 mls/hr Vancomycin HCl 1,000 mg/ (Sodium Chloride) 250 mls @ 250 mls/hr IV Q12H [facility] Last Infusion: 05/13/22 22:47 Dose: Infused Insulin Human Lispro (Insulin Lispro 1 Unit/0.01 Ml Unit) 0 unit SQ ACHS [facility]; Protocol Last Admin: 05/14/22 08:46 Dose: 2 units Lactulose (Lactulose 20 Gm/30 Ml Oral.Keri) 10 gm PO DAILYP PRN PRN Reason: Constipation Ondansetron HCl (Ondansetron 4 Mg/2 Ml Vial) 4 mg IV Q4HP PRN; Protocol PRN Reason: Nausea And Vomiting Phenazopyridine HCl (Phenazopyridine 200 Mg Tablet) 200 mg PO BIDP PRN PRN Reason: PAINFUL URINATION Last Admin: 05/14/22 04:19 Dose: 200 mg Senna (Sennosides 1 Tablet) 2 tab PO HSP PRN PRN Reason: Constipation Sodium Chloride (0.9 % Sodium Chloride 10 Ml Syringe) 10 ml IV Q8 [facility] Last Admin: 05/14/22 05:29 Dose: 10 ml Vancomycin HCl (Vancomycin Per Pharmacy) 1 order IV DAILY [facility]; Protocol A/P Assessment and plan (1) Sepsis: Status: Acute Qualifiers: Sepsis acute organ dysfunction status: with acute organ dysfunction Sepsis type: sepsis due to unspecified organism Severe sepsis acute organ dysfunction type: unspecified Severe sepsis shock status: with septic shock Qualified Code(s): A41.9 - Sepsis, unspecified organism; R65.21 - Severe sepsis with septic shock (2) Acute UTI: Status: Acute (3) Nausea vomiting and diarrhea: Status: Acute (4) Pulmonary fibrosis: Status: Acute (5) DMII (diabetes mellitus, type 2): Status: Chronic Comment: dx about 20 years ago Qualifiers: Diabetes mellitus exterminator helper insulin use: unspecified exterminator helper insulin use status Diabetes mellitus complication status: with unspecified complications Qualified Code(s): E11.8 - Type 2 diabetes mellitus with unspecified complications (6) Depression: Status: Chronic (7) Thyroid disease: Status: Chronic Comment: many years Narrative A/P Narrative: The patient's white blood cell count was within normal limits and there is no evidence of acute kidney injury. She did have lactic acidosis with a lactic acid of 2.1. She was resuscitated with IV fluids and we will continue LR at 100 cc an hour. She will be switched to cefepime 2 g IV every 8 hours and v ancomycin for empiric coverage. Follow-up on urine culture and blood cultures. Of note, the patient has lung fibrosis and repeat chest x-ray reveals worsening parenchymal lung disease. She is currently requiring supplemental O2. Continue DuoNebs and budesonide nebulizers. Medication reconciliation is pending. Of note per my code discussion, the patient would like to be full code. 05/14: Continue empiric ceftriaxone for her suspected UTI. Culture data is pending. Continue IV fluids. Her lactic acid went up slightly to 2.3 and this may be type B lactic acidosis. Continue supportive care for her pulmonary fibrosis. PT/OT eval pending regarding disposition. Time Spent With Patient Time: Total time spent is greater than 50% in coordination of care (as documented) at patient's floor/unit and/or counseling patient: Subsequent: Total time with patient: 25 - 34 minutes
[2022-05-14] MEDS: BENZONATATE 100 MG CAPSULE PO PRN ×2 (09:23→14:23)
[2022-05-14] MEDS: guaiFENesin 600 MG TAB.SR.12H PO PRN (09:23)
[2022-05-14] MEDS: ACETAMINOPHEN 325 MG TABLET PO PRN ×2 (09:23→20:56)
[2022-05-14] MEDS: ENOXAPARIN 40 MG/0.4 ML SYRINGE SQ SCH (09:24)
[2022-05-14] MEDS ORDERED: VANCOMYCIN 1,000 MG in 0.9 % SODIUM CHLORIDE 250 ML IV SCH (11:00)
[2022-05-14] MEDS: VANCOMYCIN 1,000 MG in 0.9 % SODIUM CHLORIDE 250 ML IV SCH (11:22)
[2022-05-14] MEDS: VANCOMYCIN PER PHARMACY IV SCH (12:35)
--- NOTE | 2022-05-14 13:50 | Internal Med Progress Note ---
SUBJECTIVE Subjective Patient information: Note initiated : 05/14/22 at 1:39 pm Service Date, if different from initiated Date: [] Patient: Bailey Richardson a 76 y/o F admitted on 05/13/22 for nause a/vomiting/diarrhea, hypotensive. Chief Complaint: [] Principal diagnosis: Urinary tract infection Interval history: History of present illness: Ms. Richardson is a 76 year old F with a past medical history significant for in sulin-dependent diabetes, hyperlipidemia, hypothyroidism, and depression who presents to the hospital with complaints of nausea, vomiting, diarrhea. The patient is a poor historian. She denies a productive cough, or dysuria. History is mainly obtained secondhand from chart review and from nursing. She was brought into the ER where she was found to be hypotensive with a systolic blood pressure that was 85. UA was grossly abnormal and there was concerns for urosepsis. C. difficile was also sent out however was negative. CT of the head was unrevealing. The patient was bolused with IV fluids and given IV Zofran and IV ceftriaxone. The hospitalist service was asked admit the patient for further management and evaluation. 05/14 The patient was complaining of severe dysuria last night. She has ongoing cough from her pulmonary fibrosis. This morning she states that she feels the same. 05/15 Review of Systems: denies headache/fever/chills/nausea/vomiting/chest or abdominal pain/coug h/dyspnea/diarrhea. Otherwise see above. PHYSICAL EXAM General: Alert, Awake, No acute Distress Eyes/N/T: EOMI, no scleral icterus, Head/Neck: neck supple, full ROM, CV: RRR, No murmurs, normal s1/s2 Pulm: prolonged expiratory phase, rhonchi and wheezes b/l, no respiratory distress Abd: soft, nontender, +BS x4 Ext: no clubbing/cyanosis/edema, nontender Neuro: Alert, no focal deficits, moves all extremities,, sensations intact b/l upper/lower Psychiatric: Skin: warm/dry, normal color Constitutional Vitals: Vital Signs Temp Pulse Resp BP Pulse Ox O2 Del Method O2 Flow Rate 97.7 F 107 H 31 H 103/65 91 Nasal Cannula 2 05/14/22 12:41 05/14/22 13:34 05/14/22 13:34 05/14/22 13:33 05/14/22 13:34 05/14/22 11:00 05/14/22 11:00 Period Temp Pulse Resp BP Sys/Woodard Pulse Ox O2 Del Method O2 Flow Rate Last 24 Hr 97.2 F-98.4 F 76-117 12-34 89-126/52-89 91-100 Nasal Cannula- Nasal Cannula 2-3 Intake and Output 05/14/22 05/14/22 05/14/22 03:59 11:59 19:59 Intake Total 1850 1033 300 Output Total 150 700 Balance 1700 333 300 Intake & Output: Intake & Output 05/14/22 05/14/22 05/14/22 03:59 11:59 19:59 Intake Total 1850 1033 300 Output Total 150 700 Balance 1700 333 300 Intake: IV 1250 733 Lactated Ringers 1,000 ml @ 100 1000 733 mls/hr IV .Q10H [facility] Rx#: [id number] Vancomycin 1,000 mg In Sodium 250 Chloride 0.9% 250 ml @ 250 mls/ hr IV Q12H [facility] Rx#:[id number] Oral 600 300 300 Output: Urine Catheter Amount 150 700 Other: Meal Breakfast Lunch Percent of Meal Consumed 100% 75% Feeding Ability Independent Assist with Tray Set Up Urine Appearance Clear Uretheral (Matthews) Cloudy Cloudy Urine Color [place] Uretheral (Matthews) Yellow [place] Urine Odor Normal Stool Size Smear Smear Stool Color Brown Brown Stool Consistency Soft # of times incontinent of 1 Bowels OBJ DATA Labs 05/14/22 05:16 05/14/22 05:16 Labs: Abnormal Lab Results 05/14/22 05/14/22 05/13/22 05:16 05:16 15:10 Hgb 10.1 L MCHC 29.6 L POC VBG pH POC VBG pCO2 at Temp POC VBG pO2 POC VBG HCO3 POC VBG Total CO2 POC Venous O2 Sat POC VBG Base Excess VBG Lactic Acid 2.3 H POC Potassium Carbon Dioxide 19 L Glucose 137 H POC Glucose Calcium 7.9 L POC WB Ioniz Calcium Urine Appearance Urine Glucose (UA) Urine Ketones Urine Nitrate Ur Leukocyte Esterase Urine WBC Urine Bacteria Hyaline Casts Urine Mucus 05/13/22 05/13/22 05/13/22 11:46 10:00 08:56 Hgb MCHC POC VBG pH 7.31 L POC VBG pCO2 at Temp 40.2 L POC VBG pO2 16 L 17 L POC VBG HCO3 21.8 L 20.0 L POC VBG Total CO2 23.0 L 21.0 L POC Venous O2 Sat 20.0 L 21.0 L POC VBG Base Excess -4.0 L -6.0 L VBG Lactic Acid 2.1 H 2.2 H POC Potassium Carbon Dioxide Glucose POC Glucose Calcium POC WB Ioniz Calcium Urine Appearance Hazy A Urine Glucose (UA) 150 A Urine Ketones 5 A Urine Nitrate Pos A Ur Leukocyte Esterase 75 A Urine WBC 5 H Urine Bacteria Mod A Hyaline Casts 3 H Urine Mucus Few A 05/13/22 07:55 Hgb MCHC POC VBG pH POC VBG pCO2 at Temp POC VBG pO2 POC VBG HCO3 POC VBG Total CO2 POC Venous O2 Sat POC VBG Base Excess VBG Lactic Acid POC Potassium 3.2 L Carbon Dioxide Glucose POC Glucose 265 H Calcium POC WB Ioniz Calcium 1.09 L Urine Appearance Urine Glucose (UA) Urine Ketones Urine Nitrate Ur Leukocyte Esterase Urine WBC Urine Bacteria Hyaline Casts Urine Mucus Meds: Medications Acetaminophen (Acetaminophen 325 Mg Tablet) 650 mg PO Q6HP PRN; Protocol PRN Reason: Per Pain Protocol/Fever > 101 Last Admin: 05/14/22 09:23 Dose: 650 mg Albuterol/Ipratropium (Ipratropium/Albuterol 3 Ml Ampul.Neb) 3 ml NEB Q6HRT [facility] Last Admin: 05/14/22 13:30 Dose: 3 ml Benzonatate (Benzonatate 100 Mg Capsule) 200 mg PO TIDP PRN PRN Reason: Cough Last Admin: 05/14/22 09:23 Dose: 200 mg Budesonide (Budesonide 0.5 Mg/2 Ml Ampul.Neb) 0.5 mg NEB Q12 [facility] Last Admin: 05/14/22 07:00 Dose: 0.5 mg Cefepime HCl (Cefepime 2 Gm Vial) 2 gm IV Q8H [facility]; Protocol Last Admin: 05/14/22 05:29 Dose: 2 gm Dextrose (Dextrose 50% 50 Ml Vial) 0 ml IV UD PRN PRN Reason: Per Sliding Scale Diagnostic Test (Pha) (Accu-Chek 1 Each Strip) 1 each FS ACHS [facility] Last Admin: 05/14/22 12:07 Dose: 1 each Docusate Sodium (Docusate Sodium 100 Mg Capsule) 100 mg PO BID [facility] Last Admin: 05/14/22 08:41 Dose: Not Given Enoxaparin Sodium (Enoxaparin 40 Mg/0.4 Ml Syringe) 40 mg SQ DAILY [facility] Last Admin: 05/14/22 09:24 Dose: 40 mg Glucose (Dextrose 31 Gm Oral.Susp) 15 gm PO PRN PRN PRN Reason: Hypoglycemia Guaifenesin (Guaifenesin 600 Mg Tab.Sr.12h) 600 mg PO BIDP PRN PRN Reason: Congestion Last Admin: 05/14/22 09:23 Dose: 600 mg Lactated Ringer's (Lactated Ringers) 1,000 mls @ 100 mls/hr IV .Q10H [facility] Last Admin: 05/14/22 08:48 Dose: 100 mls/hr Vancomycin HCl 1,000 mg/ (Sodium Chloride) 250 mls @ 250 mls/hr IV Q24H [facility] Last Admin: 05/14/22 10:47 Dose: 250 mls/hr Insulin Human Lispro (Insulin Lispro 1 Unit/0.01 Ml Unit) 0 unit SQ [facility]; Protocol Last Admin: 05/14/22 12:23 Dose: 6 units Lactulose (Lactulose 20 Gm/30 Ml Oral.Keri) 10 gm PO DAILYP PRN PRN Reason: Constipation Ondansetron HCl (Ondansetron 4 Mg/2 Ml Vial) 4 mg IV Q4HP PRN; Protocol PRN Reason: Nausea And Vomiting Phenazopyridine HCl (Phenazopyridine 200 Mg Tablet) 200 mg PO BIDP PRN PRN Reason: PAINFUL URINATION Last Admin: 05/14/22 04:19 Dose: 200 mg Senna (Sennosides 1 Tablet) 2 tab PO HSP PRN PRN Reason: Constipation Sodium Chloride (0.9 % Sodium Chloride 10 Ml Syringe) 10 ml IV Q8 [facility] Last Admin: 05/14/22 05:29 Dose: 10 ml Vancomycin HCl (Vancomycin Per Pharmacy) 1 order IV DAILY [facility]; Protocol Last Admin: 05/14/22 12:35 Dose: Not Given A/P Narrative A/P Narrative: A: *UTI(GNB), complicated: *Sepsis w/ Hyperlactatemia: *N/V: resolved *Metabolic acidosis: *Hypokalemia: *Pulmonary fibrosis: With exacerbation requiring oxygen *Acute hypoxic respite failure: 2/2 above *DM2: *Depression/anxiety: Continue SSRI *Hypothyroidism: Continue levothyroxine *HLD: Continue statin *?chronic back pain: on robaxin at home P: -IVF d/c -Continue cefepime/vancomycin, pending BC/UC -O2 supp and wean -IS/Acapella, nebs, RT, Budesonide nebs -Monitor UOP/renal function, fluid balance -CT chest to eval fibrosis - -Basal (Started low-dose and titrate up) and SSI -PT/OT -CM for placement needs -ppx: Lovenox Time Spent With Patient Time: Total time spent is greater than 50% in coordination of care (as documented) at patient's floor/unit and/or counseling patient:
[2022-05-14] MEDS ORDERED: POTASSIUM CHLORIDE 20 MEQ TABLET PO ONE (14:21)
[2022-05-14] MEDS: FUROSEMIDE 40 MG/4 ML VIAL IV ONE ×2 (14:23→14:43)
[2022-05-14 15:04] LABS: Uric Acid 4.3 mg/dL (2.5-8.0)
[2022-05-14] MEDS ORDERED: LEVALBUTEROL 1.25 MG/3 ML AMPUL.NEB NEB PRN (19:43)
[2022-05-14] MEDS ORDERED: IPRATROPIUM 2.5 ML AMPUL.NEB NEB PRN (19:44)
[2022-05-14] MEDS ORDERED: MAGNESIUM SULFATE 2 GM/50 ML BAG IV PRN (19:48)
[2022-05-14] MEDS ORDERED: POTASSIUM CHLORIDE 20 MEQ TABLET PO PRN ×2 (19:50→19:53)
[2022-05-14] MEDS ORDERED: POTASSIUM CHLORIDE 40 MEQ in DEXTROSE 5% IN WATER 500 ML IV PRN (19:55)
[2022-05-14] MEDS ORDERED: INSULIN GLARGINE, HUMAN 1 UNIT/0.01 ML SQ SCH (21:00)
[2022-05-15] MEDS: CEFEPIME 2 GM VIAL IV SCH ×3 (06:12→22:13)
[2022-05-15] MEDS: 0.9 % SODIUM CHLORIDE 10 ML SYRINGE IV SCH ×3 (06:13→22:15)
[2022-05-15 06:57] LABS: ALT/SGPT 21 U/L (<40); AST/SGOT 17 U/L (<32); Alkaline Phosphatase 63 U/L (39-117); Bilirubin,Direct < 0.2 mg/dL (0-0.3); Bilirubin,Total 0.4 mg/dL (0.1-1.0); Blood Urea Nitrogen 14 mg/dL (8-23); Carbon Dioxide 23 mmol/L (22-30); Chloride 106 mmol/L (96-108); Globulin 2.9 gm/dL (2.2-3.7); Glomerular Filtration Rate 83; Glucose 103 mg/dL (70-105); Lactate Dehydrogenase 230 U/L (135-225); Phosphorous 3.4 mg/dL (2.5-4.5); Triglycerides 58 mg/dL (<150); Uric Acid 4.6 mg/dL (2.5-8.0)
--- NOTE | 2022-05-15 07:42 | Internal Med Progress Note ---
SUBJECTIVE Subjective Patient information: Note initiated : 05/15/22 at 7:36 am Service Date, if different from initiated Date: [] Patient: Bailey Richardson 76 y/o F admitted on 05/13/22 for nause a/vomiting/diarrhea, hypotensive. Chief Complaint: [] Principal diagnosis: Urinary tract infection Interval history: History of present illness: Ms. Richardson is a 76 year old F with a past medical history significant for in sulin-dependent diabetes, hyperlipidemia, hypothyroidism, and depression who presents to the hospital with complaints of nausea, vomiting, diarrhea. The patient is a poor historian. She denies a productive cough, or dysuria. History is mainly obtained secondhand from chart review and from nursing. She was brought into the ER where she was found to be hypotensive with a systolic blood pressure that was 85. UA was grossly abnormal and there was concerns for urosepsis. C. difficile was also sent out however was negative. CT of the head was unrevealing. The patient was bolused with IV fluids and given IV Zofran and IV ceftriaxone. The hospitalist service was asked admit the patient for further management and evaluation. 05/14 The patient was complaining of severe dysuria last night. She has ongoing cough from her pulmonary fibrosis. This morning she states that she feels the same. 05/15 Patient desatted to the 60s with exertion but good oxygenation at rest. She has a cough and shortness of breath. CT chest pending. Acidosis improving. Magnesium quite low. Replace. Review of Systems: denies headache/fever/chills/nausea/vomiting/chest or abdominal pain/diarrhea. Otherwise see above. PHYSICAL EXAM General: Alert, Awake, No acute Distress Eyes/N/T: EOMI, no scleral icterus, Head/Neck: neck supple, full ROM, CV: RRR, No murmurs, normal s1/s2 Pulm: prolonged expiratory phase, severe b/l fine rales, no respiratory distress Abd: soft, nontender, +BS x4 Ext: no clubbing/cyanosis/edema, nontender Neuro: Alert, no focal deficits, moves all extremities,, sensations intact b/l upper/lower Psychiatric: Skin: warm/dry, normal color Constitutional Vitals: Vital Signs Temp Pulse Resp BP Pulse Ox O2 Del Method O2 Flow Rate 97.9 F 78 24 H 122/71 97 Nasal Cannula, Bubble Humidifier 2 05/15/22 04:01 05/15/22 06:11 05/15/22 06:11 05/15/22 06:01 05/15/22 06:11 05/15/22 06:01 05/15/22 06:01 Period Temp Pulse Resp BP Sys/Woodard Pulse Ox O2 Del Method O2 Flow Rate Last 24 Hr 97.7 F-98.3 F 78-118 14-36 73-124/49-80 87-100 Nasal Cannula- Nasal Cannula, Bubble Humidifier 1-5 Intake and Output 05/14/22 05/15/22 05/15/22 19:59 03:59 11:59 Intake Total 1287 200 Output Total 1200 950 150 Balance 87 -950 50 Weight 57.663 kg 59.693 kg Intake & Output: Intake & Output 05/14/22 05/15/22 05/15/22 19:59 03:59 11:59 Intake Total 1287 200 Output Total 1200 950 150 Balance 87 -950 50 Weight 57.663 kg 59.693 kg Intake: IV 887 Lactated Ringers 1,000 ml @ 100 887 mls/hr IV .Q10H [facility] Rx#: [id number] Oral 400 200 Output: Urine Catheter Amount 1200 950 150 Other: Meal Dinner Percent of Meal Consumed 100% Feeding Ability Assist with Tray Set Up Urine Appearance Clear Clear Clear Uretheral (Matthews) Clear Clear Urine Color [place] Uretheral (Matthews) [place] Urine Odor Strong OBJ DATA Labs 05/14/22 05:16 05/15/22 05:29 Labs: Abnormal Lab Results 05/15/22 05/14/22 05/14/22 05:29 14:05 05:16 Hgb MCHC POC VBG pH POC VBG pCO2 at Temp POC VBG pO2 POC VBG HCO3 POC VBG Total CO2 POC Venous O2 Sat POC VBG Base Excess VBG Lactic Acid POC Potassium Carbon Dioxide 19 L Glucose 137 H POC Glucose Calcium 8.0 L 7.9 L POC WB Ioniz Calcium Magnesium 1.1 L Lactate Dehydrogenase 230 H NT-Pro-B Natriuret Pep 3368.0 H Albumin 3.0 L Urine Appearance Urine Glucose (UA) Urine Ketones Urine Nitrate Ur Leukocyte Esterase Urine WBC Urine Bacteria Hyaline Casts Urine Mucus 05/14/22 05/13/22 05/13/22 05:16 15:10 11:46 Hgb 10.1 L MCHC 29.6 L POC VBG pH POC VBG pCO2 at Temp POC VBG pO2 16 L POC VBG HCO3 21.8 L POC VBG Total CO2 23.0 L POC Venous O2 Sat 20.0 L POC VBG Base Excess -4.0 L VBG Lactic Acid 2.3 H 2.1 H POC Potassium Carbon Dioxide Glucose POC Glucose Calcium POC WB Ioniz Calcium Magnesium Lactate Dehydrogenase NT-Pro-B Natriuret Pep Albumin Urine Appearance Urine Glucose (UA) Urine Ketones Urine Nitrate Ur Leukocyte Esterase Urine WBC Urine Bacteria Hyaline Casts Urine Mucus 05/13/22 05/13/22 05/13/22 10:00 08:56 07:55 Hgb MCHC POC VBG pH 7.31 L POC VBG pCO2 at Temp 40.2 L POC VBG pO2 17 L POC VBG HCO3 20.0 L POC VBG Total CO2 21.0 L POC Venous O2 Sat 21.0 L POC VBG Base Excess -6.0 L VBG Lactic Acid 2.2 H POC Potassium 3.2 L Carbon Dioxide Glucose POC Glucose 265 H Calcium POC WB Ioniz Calcium 1.09 L Magnesium Lactate Dehydrogenase NT-Pro-B Natriuret Pep Albumin Urine Appearance Hazy A Urine Glucose (UA) 150 A Urine Ketones 5 A Urine Nitrate Pos A Ur Leukocyte Esterase 75 A Urine WBC 5 H Urine Bacteria Mod A Hyaline Casts 3 H Urine Mucus Few A Meds: Medications Acetaminophen (Acetaminophen 325 Mg Tablet) 650 mg PO Q6HP PRN; Protocol PRN Reason: Per Pain Protocol/Fever > 101 Last Admin: 05/14/22 20:56 Dose: 650 mg Atorvastatin Calcium (Atorvastatin 40 Mg Tablet) 40 mg PO QDAY [facility] Benzonatate (Benzonatate 100 Mg Capsule) 200 mg PO TIDP PRN PRN Reason: Cough Last Admin: 05/14/22 14:23 Dose: 200 mg Budesonide (Budesonide 0.5 Mg/2 Ml Ampul.Neb) 0.5 mg NEB Q12 [facility] Last Admin: 05/14/22 19:23 Dose: 0.5 mg Cefepime HCl (Cefepime 2 Gm Vial) 2 gm IV Q8H [facility]; Protocol Last Admin: 05/15/22 06:12 Dose: 2 gm Dextrose (Dextrose 50% 50 Ml Vial) 0 ml IV UD PRN PRN Reason: Per Sliding Scale Diagnostic Test (Pha) (Accu-Chek 1 Each Strip) 1 each FS ACHS [facility] Last Admin: 05/14/22 20:56 Dose: 1 each Docusate Sodium (Docusate Sodium 100 Mg Capsule) 100 mg PO BID [facility] Last Admin: 05/14/22 20:56 Dose: 100 mg Enoxaparin Sodium (Enoxaparin 40 Mg/0.4 Ml Syringe) 40 mg SQ DAILY [facility] Last Admin: 05/14/22 09:24 Dose: 40 mg Glucose (Dextrose 31 Gm Oral.Susp) 15 gm PO PRN PRN PRN Reason: Hypoglycemia Guaifenesin (Guaifenesin 600 Mg Tab.Sr.12h) 600 mg PO BIDP PRN PRN Reason: Congestion Last Admin: 05/14/22 09:23 Dose: 600 mg Vancomycin HCl 1,000 mg/ (Sodium Chloride) 250 mls @ 250 mls/hr IV Q24H [facility] Last Infusion: 05/14/22 11:47 Dose: Infused Magnesium Sulfate (Magnesium Sulfate) 2 gm in 50 mls @ 25 mls/hr IV PRN PRN PRN Reason: Magnesium </= 1.6 Potassium Chloride 40 meq/ (Dextrose) 520 mls @ 130 mls/hr IV DAILYP PRN PRN Reason: Potassium < 3 Insulin Glargine (Insulin Glargine, Human 1 Unit/0.01 Ml) 20 unit SQ [facility] Last Admin: 05/14/22 20:58 Dose: 20 units Insulin Human Lispro (Insulin Lispro 1 Unit/0.01 Ml Unit) 0 unit SQ [facility]; Protocol Last Admin: 05/14/22 20:57 Dose: 6 units Ipratropium [place] (Ipratropium 2.5 Ml Ampul.Neb) 2.5 ml NEB BID [facility] Ipratropium [place] (Ipratropium 2.5 Ml Ampul.Neb) 2.5 ml NEB Q4HP PRN PRN Reason: shortness of breath Lactulose (Lactulose 20 Gm/30 Ml Oral.Keri) 10 gm PO DAILYP PRN PRN Reason: Constipation Levalbuterol HCl (Levalbuterol 1.25 Mg/3 Ml Ampul.Neb) 1.25 mg NEB BID [facility] Levalbuterol HCl (Levalbuterol 1.25 Mg/3 Ml Ampul.Neb) 1.25 mg NEB Q4HP PRN PRN Reason: Shortness Of Breath Levothyroxine Sodium (Levothyroxine 125 Mcg Tablet) 125 mcg PO QDAY [facility] Ondansetron HCl (Ondansetron 4 Mg/2 Ml Vial) 4 mg IV Q4HP PRN; Protocol PRN Reason: Nausea And Vomiting Last Admin: 05/14/22 20:23 Dose: 4 mg Phenazopyridine HCl (Phenazopyridine 200 Mg Tablet) 200 mg PO BIDP PRN PRN Reason: PAINFUL URINATION Last Admin: 05/14/22 04:19 Dose: 200 mg Potassium Chloride (Potassium Chloride 20 Meq Tablet) 20 meq PO DAILYP PRN PRN Reason: Potassium is 3-3.5 Potassium Chloride (Potassium Chloride 20 Meq Tablet) 20 meq PO DAILYP PRN PRN Reason: Potassium < 3 Senna (Sennosides 1 Tablet) 2 tab PO HSP PRN PRN Reason: Constipation Last Admin: 05/14/22 20:56 Dose: 2 tab Sertraline HCl (Sertraline 50 Mg Tablet) 50 mg PO QDAY [facility] Sodium Chloride (0.9 % Sodium Chloride 10 Ml Syringe) 10 ml IV Q8 [facility] Last Admin: 05/15/22 06:13 Dose: 10 ml Vancomycin HCl (Vancomycin Per Pharmacy) 1 order IV DAILY [facility]; Protocol Last Admin: 05/14/22 12:35 Dose: Not Given A/P Narrative A/P Narrative: A: *UTI(e.coli), complicated: *Sepsis w/Hyperlactatemia(improved): *Generalized weakness/deconditioning/falling: *N/V: resolved *Metabolic acidosis: improving *Hypokalemia/Hypomagnesemia: *Pulmonary fibrosis: With exacerbation requiring oxygen *Acute hypoxic respite failure: 2/2 above -on 2L nc *DM2: *Depression/anxiety: Continue SSRI *Hypothyroidism: Continue levothyroxine *HLD: Continue statin P: -IVF d/c -Continue cefepime/vancomycin(d/c, check screen), pending BC/UC -O2 supp and wean -IS/Acapella, nebs, RT, Budesonide nebs -Monitor UOP/renal function, fluid balance -CT chest to eval fibrosis - -Basal (Started low-dose and titrate up) and SSI -PT/OT -CM for placement needs -ppx: Lovenox Time Spent With Patient Time: Total time spent is greater than 50% in coordination of care (as documented) at patient's floor/unit and/or counseling patient: Subsequent: Total time with patient: 50 - 65 Minutes
[2022-05-15] MEDS: INSULIN LISPRO 1 UNIT/0.01 ML UNIT SQ SCH ×4 (07:56→22:16)
[2022-05-15] MEDS ORDERED: MAGNESIUM SULFATE 24.36 MEQ in DEXTROSE 5% IN WATER 50 ML IV SCH (08:00)
[2022-05-15] MEDS: BUDESONIDE 0.5 MG/2 ML AMPUL.NEB NEB SCH ×2 (08:08→20:14)
[2022-05-15] MEDS: LEVALBUTEROL 1.25 MG/3 ML AMPUL.NEB NEB SCH ×3 (08:08→20:15)
[2022-05-15] MEDS: IPRATROPIUM 2.5 ML AMPUL.NEB NEB SCH ×3 (08:08→20:14)
[2022-05-15] MEDS ORDERED: DEXTROSE 5% IV SCH (08:15)
[2022-05-15] MEDS ORDERED: WATER IV SCH (08:15)
[2022-05-15] MEDS ORDERED: MAGNESIUM SULFATE IV SCH (08:15)
[2022-05-15] MEDS: SERTRALINE 50 MG TABLET PO SCH (08:19)
[2022-05-15] MEDS: PHENAZOPYRIDINE 200 MG TABLET PO PRN (08:19)
[2022-05-15] MEDS: LEVOTHYROXINE 125 MCG TABLET PO SCH (08:19)
[2022-05-15] MEDS: guaiFENesin 600 MG TAB.SR.12H PO PRN (08:19)
[2022-05-15] MEDS: ACETAMINOPHEN 325 MG TABLET PO PRN ×2 (08:19→22:14)
[2022-05-15] MEDS: BENZONATATE 100 MG CAPSULE PO PRN (08:20)
[2022-05-15] MEDS: ATORVASTATIN 40 MG TABLET PO SCH (08:20)
[2022-05-15] MEDS: ENOXAPARIN 40 MG/0.4 ML SYRINGE SQ SCH (08:20)
[2022-05-15] MEDS: DOCUSATE SODIUM 100 MG CAPSULE PO SCH ×2 (08:23→22:15)
[2022-05-15 09:29] LABS: Vancomycin,Random 18.5 ug/mL
--- NOTE | 2022-05-15 10:06 | Discharge Summary ---
Discharge Provider Provider IMPORTANT FOLLOW-UP INFORMATION FOR PCP: Patient information: Note initiated : 05/15/22 at 10:03 am Service Date, if different from initiated Date: [] Patient: Bailey Richardson a 76 y/o F admitted on 05/13/22 for nausea/vomiting/diarrhea, hypotensive. Chief Complaint: [] Date of admission: 05/13/22 14:30 Discharge date: 05/16/22 Primary care physician: Corrina Bhatia DO Consults: 05/13/22 Consult to Physician [CONS] Stat Comment: Consulting Provider: Valentine White Reason For Exam: Physician to Consult COURSE Hospital Course Hospital course: History of present illness: Ms. Richardson is a 76 year old F with a past medical history significant for insulin-dependent diabetes, hyperlipidemia, hypothyroidism, and depression who presents to the hospital with complaints of nausea, vomiting, diarrhea. The patient is a poor historian. She denies a productive cough, or dysuria. History is mainly obtained secondhand from chart review and from nursing. She was brought into the ER where she was found to be hypotensive with a systolic blood pressure that was 85. UA was grossly abnormal and there was concerns for urosepsis. C. difficile was also sent out however was negative. CT of the head was unrevealing. The patient was bolused with IV fluids and given IV Zofran and IV ceftriaxone. The hospitalist service was asked admit the patient for further management and evaluation. 05/14 The patient was complaining of severe dysuria last night. She has ongoing cough from her pulmonary fibrosis. This morning she states that she feels the same. 05/15 Patient desatted to the 60s with exertion but good oxygenation at rest. She has a cough and shortness of breath. CT chest pending. Acidosis improving. Magnesium quite low. Replace. 05/16 Patient sitting up in bed eating breakfast. Feeling better. Magnesium better. Plans to go home with home health and family support. Will need home oxygen evaluation. Patient high risk for readmission given age and progressive chronic disease A: *UTI(e.coli), complicated: *Sepsis w/Hyperlactatemia: *N/V: resolved *Metabolic acidosis: improving *Hypokalemia/Hypomagnesemia: *Pulmonary fibrosis: With exacerbation requiring oxygen *Acute hypoxic respite failure: 2/2 above *DM2: *Depression/anxiety: Continue SSRI *Hypothyroidism: Continue levothyroxine *HLD: Continue statin P: -abx -home O2 -f/u with pulmonology Discharge diagnosis: UTI sepsis acidosis electrolyte disturbance hypoxia Secondary discharge diagnosis: Pulmonary fibrosis with exacerbation diabetes depression anxiety hypothyroidism Time Spent with Patient Time attestation: Total time spent providing and/or coordinating discharge services: Time spent: Greater than 30 minutes EXAM Constitutional Vitals: Temp Pulse Resp BP Pulse Ox O2 Del Method O2 Flow Rate 97.5 F 74 20 112/74 91 Nasal Cannula 3.5 05/15/22 08:01 05/15/22 08:11 05/15/22 08:11 05/15/22 08:01 05/15/22 08:11 05/15/22 08:11 05/15/22 08:11 Discharge Data Data Completed and Pending Labs on day of discharge: Labs from last 24 hours 05/15/22 05/15/22 05/15/22 05:29 05:28 05:28 VBG Lactic Acid 0.6 Sodium 139 Potassium 3.7 Chloride 106 Carbon Dioxide 23 Anion Gap 10.0 BUN 14 Creatinine 0.7 GFR Calculation 83 Glucose 103 Uric Acid 4.6 Calcium 8.0 L Phosphorus 3.4 Magnesium 1.1 L Total Bilirubin 0.4 Direct Bilirubin < 0.2 GGT 16 AST 17 ALT 21 Alkaline Phosphatase 63 Lactate Dehydrogenase 230 H NT-Pro-B Natriuret Pep Total Protein 5.9 Albumin 3.0 L Globulin 2.9 Albumin/Globulin Ratio 1.0 Triglycerides 58 Vancomycin Trough Random Vancomycin 18.5 05/14/22 05/14/22 14:05 09:13 VBG Lactic Acid Sodium Potassium Chloride Carbon Dioxide Anion Gap BUN Creatinine GFR Calculation Glucose Uric Acid 4.3 Calcium Phosphorus Magnesium Total Bilirubin Direct Bilirubin GGT AST ALT Alkaline Phosphatase Lactate Dehydrogenase NT-Pro-B Natriuret Pep 3368.0 H Total Protein Albumin Globulin Albumin/Globulin Ratio Triglycerides Vancomycin Trough 15.0 Random Vancomycin Preliminary micro results at discharge 05/13/22 08:21 Blood Culture - Preliminary Blood 05/13/22 08:16 Blood Culture - Preliminary Blood 05/13/22 10:00 Urine Culture - Preliminary Urine - Matthews Gram negative bacillus Discharge Plan Patient/Caregiver Discharge Instructions Activity: increase activity as tolerated Diet: Consistent Carbohydrate Activity Restrictions/Additional Instructions: Follow-up with pulmonology in 3 to 14 days for pulmonary fibrosis. Home oxygen. Prescriptions: New ciprofloxacin HCl [Cipro] 500 mg tablet 500 mg PO BID Qty: 6 0RF Continued (DME) Comfort EZ Pen [place] 33 gauge x 5/16" needle See Dose Instructions .ROUTE .MEDSUPPLY Qty: 200 0RF Dose Instruction: As directed Rx Instructions: qid insulin aspart U-100 [Novolog FlexPen U-100 Insulin] 100 unit/mL (3 mL) insulin pen 17 unit SUB-Q TID Qty: 15 3RF cholecalciferol (vitamin D3) 1,250 mcg (50,000 unit) capsule 50,000 unit PO QWEEK Qty: 12 1RF sertraline 50 mg tablet 50 mg PO QDAY Qty: 90 0RF atorvastatin 40 mg tablet 40 mg PO QDAY Qty: 90 0RF insulin glargine 100 unit/mL (3 mL) insulin pen 45 unit subcut QPM Qty: 15 2RF levothyroxine 125 mcg tablet 125 mcg PO QDAY Qty: 90 0RF Follow Up Plan Follow up with: Corrina Bhatia DO [Primary Care Provider] - Patient Disposition: Home Health Service Prognosis: Fair Overall status at discharge: patient is progressing back to baseline Discharge Orders: Discharge Order (Routine); Ordered 05/16/22 Ordered By: Javier Eisenberg
[2022-05-15] MEDS: VANCOMYCIN PER PHARMACY IV SCH (10:42)
--- NOTE | 2022-05-15 11:06 | Cat Scan Report ---
History: Short of breath, follow-up pulmonary fibrosis TECHNIQUE: The chest was imaged without contrast in axial plane at 2.5 mm intervals. Sagittal, coronal and axial MIPS images were created. The radiation exposure was limited using dose reduction technology. FINDINGS: Patient has severe diffuse interstitial lung disease throughout all lobes. This predominantly involves the periphery. There is subpleural honeycombing in the lung parenchyma. No traction bronchiectasis is present in the periphery of all lobes. There is also superimposed active inflammation with vague groundglass alveolar opacities, most apparent in the posterior lung bases. There is no lobar consolidation. No mass is present. There is no pleural effusion. The fibrosis and inflammation have become significantly worse since prior CT done on 04/25/19. Patient is developing worsening pulmonary artery hypertension. Main pulmonary artery is now 3.8 cm in diameter. It was 3.1 cm on the prior exam. The aorta is normal in caliber. There is moderate amount of plaque in the aortic arch and small amount of plaque in the coronary arteries. Heart is mildly enlarged. No pericardial effusion is present. There are a few enlarged lymph nodes in the mediastinum. The largest is in the pretracheal retrocaval space and measures 1.9 x 2.2 cm. It measured 1.3 x 1.7 cm on the prior exam. Spine has a kyphotic curvature. There is a stable old mild to moderate wedge compression fracture involving the superior endplate of T9. IMPRESSION: Severe pulmonary fibrosis. This may be usual interstitial pneumonia/idiopathic pulmonary fibrosis. There is an active inflammatory component in the lower lobes. Pulmonary artery hypertension Interpreted and Authenticated by: Luis Howard 05/15/22
[2022-05-15] MEDS ORDERED: methylPREDNISolone SOD SUCC 125 MG/2 ML VIAL IV SCH (11:35)
[2022-05-15] MEDS ORDERED: HYDROcodone/APAP 5/325MG TABLET PO PRN (13:20)
[2022-05-15] MEDS: oxyCODONE/APAP 5/325MG TABLET PO PRN (14:07)
[2022-05-15] MEDS ORDERED: INSULIN GLARGINE, HUMAN 1 UNIT/0.01 ML SQ SCH (21:00)
[2022-05-15] MEDS: methylPREDNISolone SOD SUCC 40 MG/ML VIAL IV SCH (22:13)
[2022-05-16] MEDS: oxyCODONE/APAP 5/325MG TABLET PO PRN (00:20)
[2022-05-16] MEDS: CEFEPIME 2 GM VIAL IV SCH ×2 (05:42→14:19)
[2022-05-16] MEDS: 0.9 % SODIUM CHLORIDE 10 ML SYRINGE IV SCH ×2 (05:42→14:19)
[2022-05-16 06:48] LABS: ALT/SGPT 9 U/L (<40); AST/SGOT 18 U/L (<32); Albumin 3.4 gm/dL (3.2-5.2); Albumin/Globulin Ratio 1.1 (1.0-2.3); Alkaline Phosphatase 74 U/L (39-117); Bilirubin,Direct 0.2 mg/dL (<0.3); Bilirubin,Total 0.4 mg/dL (0.1-1.0); Blood Urea Nitrogen 17 mg/dL (8-23); Calcium 8.3 mg/dL (8.6-10.4); Carbon Dioxide 24 mmol/L (22-30); Chloride 100 mmol/L (96-108); Globulin 3.2 gm/dL (2.2-3.7); Glomerular Filtration Rate 71; Glucose 269 mg/dL (70-105); Lactate Dehydrogenase 342 U/L (135-225); Phosphorous 2.6 mg/dL (2.5-4.5); Triglycerides 60 mg/dL (<150); Uric Acid 3.9 mg/dL (2.5-8.0)
[2022-05-16] MEDS: INSULIN LISPRO 1 UNIT/0.01 ML UNIT SQ SCH ×2 (07:27→11:50)
--- NOTE | 2022-05-16 07:42 | Internal Med Progress Note ---
SUBJECTIVE Subjective Patient information: Note initiated : 05/16/22 at 7:37 am Service Date, if different from initiated Date: [] Patient: Bailey Richardson a 76 y/o F admitted on 05/13/22 for nause a/vomiting/diarrhea, hypotensive. Chief Complaint: [] Principal diagnosis: Urinary tract infection Interval history: History of present illness: Ms. Richardson is a 76 year old F with a past medical history significant for in sulin-dependent diabetes, hyperlipidemia, hypothyroidism, and depression who presents to the hospital with complaints of nausea, vomiting, diarrhea. The patient is a poor historian. She denies a productive cough, or dysuria. History is mainly obtained secondhand from chart review and from nursing. She was brought into the ER where she was found to be hypotensive with a systolic blood pressure that was 85. UA was grossly abnormal and there was concerns for urosepsis. C. difficile was also sent out however was negative. CT of the head was unrevealing. The patient was bolused with IV fluids and given IV Zofran and IV ceftriaxone. The hospitalist service was asked admit the patient for further management and evaluation. 05/14 The patient was complaining of severe dysuria last night. She has ongoing cough from her pulmonary fibrosis. This morning she states that she feels the same. 05/15 Patient desatted to the 60s with exertion but good oxygenation at rest. She has a cough and shortness of breath. CT chest pending. Acidosis improving. Magnesium quite low. Replace. 05/16 Patient sitting up in bed eating breakfast. Feeling better. Magnesium better. Plans to go home with home health and family support. Will need home oxygen evaluation. Review of Systems: denies headache/fever/chills/nausea/vomiting/chest or abdominal pain/diarrhea. Otherwise see above. PHYSICAL EXAM General: Alert, Awake, No acute Distress Eyes/N/T: EOMI, no scleral icterus, Head/Neck: neck supple, full ROM, CV: RRR, No murmurs, normal s1/s2 Pulm: prolonged expiratory phase, severe b/l fine rales, no respiratory distress Abd: soft, nontender, +BS x4 Ext: no clubbing/cyanosis/edema, nontender Neuro: Alert, no focal deficits, moves all extremities,, sensations intact b/l upper/lower Psychiatric: Skin: warm/dry, normal color Constitutional Vitals: Vital Signs Temp Pulse Resp BP Pulse Ox O2 Del Method O2 Flow Rate 98.7 F 84 24 H 115/73 90 Nasal Cannula 3 05/16/22 04:00 05/16/22 04:00 05/16/22 04:00 05/16/22 04:00 05/16/22 04:00 05/16/22 04:00 05/16/22 04:00 Period Temp Pulse Resp BP Sys/Woodard Pulse Ox O2 Del Method O2 Flow Rate Last 24 Hr 97.3 F-98.7 F 74-101 16-32 89-115/59-84 90-96 Nasal Cannula- Nasal Cannula, Bubble Humidifier 1-3.5 Intake and Output 05/15/22 05/16/22 05/16/22 19:59 03:59 11:59 Intake Total 1146 Output Total 350 300 0 Balance 796 -300 0 Weight 63.503 kg Intake & Output: Intake & Output 05/15/22 05/16/22 05/16/22 19:59 03:59 11:59 Intake Total 1146 Output Total 350 300 0 Balance 796 -300 0 Weight 63.503 kg Intake: IV 106 Magnesium Sulfate 24.36 Meq In 106 Dextrose 5% in Water 100 ml @ 35.333 mls/hr IV ONCE [facility] Rx#: [id number] Oral 1040 Output: Urine Catheter Amount 350 300 Void Amount 0 Other: Meal Dinner Percent of Meal Consumed 100% Feeding Ability Assist with Tray Set Up Urine Appearance Clear Uretheral (Matthews) Clear Urine Color [place] Uretheral (Matthews) [place] Urine Odor Normal Strong Uretheral (Matthews) Normal Strong OBJ DATA Labs 05/14/22 05:16 05/16/22 05:44 Labs: Abnormal Lab Results 05/16/22 05/15/22 05/14/22 05:44 05:29 14:05 Hgb MCHC POC VBG pH POC VBG pCO2 at Temp POC VBG pO2 POC VBG HCO3 POC VBG Total CO2 POC Venous O2 Sat POC VBG Base Excess VBG Lactic Acid Sodium 131 L POC Potassium Carbon Dioxide Anion Gap 7.0 L Glucose 269 H POC Glucose Calcium 8.3 L 8.0 L POC WB Ioniz Calcium Magnesium 1.1 L Lactate Dehydrogenase 342 H 230 H NT-Pro-B Natriuret Pep 3368.0 H Albumin 3.0 L Urine Appearance Urine Glucose (UA) Urine Ketones Urine Nitrate Ur Leukocyte Esterase Urine WBC Urine Bacteria Hyaline Casts Urine Mucus 05/14/22 05/14/22 05/13/22 05:16 05:16 15:10 Hgb 10.1 L MCHC 29.6 L POC VBG pH POC VBG pCO2 at Temp POC VBG pO2 POC VBG HCO3 POC VBG Total CO2 POC Venous O2 Sat POC VBG Base Excess VBG Lactic Acid 2.3 H Sodium POC Potassium Carbon Dioxide 19 L Anion Gap Glucose 137 H POC Glucose Calcium 7.9 L POC WB Ioniz Calcium Magnesium Lactate Dehydrogenase NT-Pro-B Natriuret Pep Albumin Urine Appearance Urine Glucose (UA) Urine Ketones Urine Nitrate Ur Leukocyte Esterase Urine WBC Urine Bacteria Hyaline Casts Urine Mucus 05/13/22 05/13/22 05/13/22 11:46 10:00 08:56 Hgb MCHC POC VBG pH 7.31 L POC VBG pCO2 at Temp 40.2 L POC VBG pO2 16 L 17 L POC VBG HCO3 21.8 L 20.0 L POC VBG Total CO2 23.0 L 21.0 L POC Venous O2 Sat 20.0 L 21.0 L POC VBG Base Excess -4.0 L -6.0 L VBG Lactic Acid 2.1 H 2.2 H Sodium POC Potassium Carbon Dioxide Anion Gap Glucose POC Glucose Calcium POC WB Ioniz Calcium Magnesium Lactate Dehydrogenase NT-Pro-B Natriuret Pep Albumin Urine Appearance Hazy A Urine Glucose (UA) 150 A Urine Ketones 5 A Urine Nitrate Pos A Ur Leukocyte Esterase 75 A Urine WBC 5 H Urine Bacteria Mod A Hyaline Casts 3 H Urine Mucus Few A 05/13/22 07:55 Hgb MCHC POC VBG pH POC VBG pCO2 at Temp POC VBG pO2 POC VBG HCO3 POC VBG Total CO2 POC Venous O2 Sat POC VBG Base Excess VBG Lactic Acid Sodium POC Potassium 3.2 L Carbon Dioxide Anion Gap Glucose POC Glucose 265 H Calcium POC WB Ioniz Calcium 1.09 L Magnesium Lactate Dehydrogenase NT-Pro-B Natriuret Pep Albumin Urine Appearance Urine Glucose (UA) Urine Ketones Urine Nitrate Ur Leukocyte Esterase Urine WBC Urine Bacteria Hyaline Casts Urine Mucus Meds: Medications Acetaminophen (Acetaminophen 325 Mg Tablet) 650 mg PO Q6HP PRN; Protocol PRN Reason: Per Pain Protocol/Fever > 101 Last Admin: 05/15/22 22:14 Dose: 650 mg Atorvastatin Calcium (Atorvastatin 40 Mg Tablet) 40 mg PO QDAY [facility] Last Admin: 05/15/22 08:20 Dose: 40 mg Benzonatate (Benzonatate 100 Mg Capsule) 200 mg PO TIDP PRN PRN Reason: Cough Last Admin: 05/15/22 08:20 Dose: 200 mg Budesonide (Budesonide 0.5 Mg/2 Ml Ampul.Neb) 0.5 mg NEB Q12 CARLOS Last Admin: 05/15/22 20:14 Dose: 0.5 mg Cefepime HCl (Cefepime 2 Gm Vial) 2 gm IV Q8H [facility]; Protocol Last Admin: 05/16/22 05:42 Dose: 2 gm Dextrose (Dextrose 50% 50 Ml Vial) 0 ml IV UD PRN PRN Reason: Per Sliding Scale Diagnostic Test (Pha) (Accu-Chek 1 Each Strip) 1 each FS ACHS [facility] Last Admin: 05/16/22 07:28 Dose: 1 each Docusate Sodium (Docusate Sodium 100 Mg Capsule) 100 mg PO BID [facility] Last Admin: 05/15/22 22:15 Dose: 100 mg Enoxaparin Sodium (Enoxaparin 40 Mg/0.4 Ml Syringe) 40 mg SQ DAILY [facility] Last Admin: 05/15/22 08:20 Dose: 40 mg Glucose (Dextrose 31 Gm Oral.Susp) 15 gm PO PRN PRN PRN Reason: Hypoglycemia Guaifenesin (Guaifenesin 600 Mg Tab.Sr.12h) 600 mg PO BIDP PRN PRN Reason: Congestion Last Admin: 05/15/22 08:19 Dose: 600 mg Magnesium Sulfate (Magnesium Sulfate) 2 gm in 50 mls @ 25 mls/hr IV PRN PRN PRN Reason: Magnesium </= 1.6 Potassium Chloride 40 meq/ (Dextrose) 520 mls @ 130 mls/hr IV DAILYP PRN PRN Reason: Potassium < 3 Insulin Glargine (Insulin Glargine, Human 1 Unit/0.01 Ml) 30 unit SQ HS [facility] Last Admin: 05/15/22 22:16 Dose: 30 units Insulin Human Lispro (Insulin Lispro 1 Unit/0.01 Ml Unit) 0 unit SQ ACHS [facility]; Protocol Last Admin: 05/16/22 07:27 Dose: 8 units Ipratropium [place] (Ipratropium 2.5 Ml Ampul.Neb) 2.5 ml NEB BID [facility] Last Admin: 05/15/22 20:14 Dose: 2.5 ml Ipratropium [place] (Ipratropium 2.5 Ml Ampul.Neb) 2.5 ml NEB Q4HP PRN PRN Reason: shortness of breath Lactulose (Lactulose 20 Gm/30 Ml Oral.Keri) 10 gm PO DAILYP PRN PRN Reason: Constipation Levalbuterol HCl (Levalbuterol 1.25 Mg/3 Ml Ampul.Neb) 1.25 mg NEB BID [facility] Last Admin: 05/15/22 20:15 Dose: 1.25 mg Levalbuterol HCl (Levalbuterol 1.25 Mg/3 Ml Ampul.Neb) 1.25 mg NEB Q4HP PRN PRN Reason: Shortness Of Breath Levothyroxine Sodium (Levothyroxine 125 Mcg Tablet) 125 mcg PO QDAY [facility] Last Admin: 05/15/22 08:19 Dose: 125 mcg Methylprednisolone Sodium Succinate (Methylprednisolone Sod Succ 40 Mg/Ml Vial) 40 mg IV Q12 [facility] Last Admin: 05/15/22 22:13 Dose: 40 mg Ondansetron HCl (Ondansetron 4 Mg/2 Ml Vial) 4 mg IV Q4HP PRN; Protocol PRN Reason: Nausea And Vomiting Last Admin: 05/14/22 20:23 Dose: 4 mg Oxycodone/Acetaminophen (Oxycodone/Apap 5/325mg Tablet) 1 tab PO Q4-6HP PRN; Protocol PRN Reason: Per Pain Protocol Last Admin: 05/16/22 00:20 Dose: 1 tab Phenazopyridine HCl (Phenazopyridine 200 Mg Tablet) 200 mg PO BIDP PRN PRN Reason: PAINFUL URINATION Last Admin: 05/15/22 08:19 Dose: 200 mg Potassium Chloride (Potassium Chloride 20 Meq Tablet) 20 meq PO DAILYP PRN PRN Reason: Potassium is 3-3.5 Potassium Chloride (Potassium Chloride 20 Meq Tablet) 20 meq PO DAILYP PRN PRN Reason: Potassium < 3 Senna (Sennosides 1 Tablet) 2 tab PO HSP PRN PRN Reason: Constipation Last Admin: 05/14/22 20:56 Dose: 2 tab Sertraline HCl (Sertraline 50 Mg Tablet) 50 mg PO QDAY [facility] Last Admin: 05/15/22 08:19 Dose: 50 mg Sodium Chloride (0.9 % Sodium Chloride 10 Ml Syringe) 10 ml IV Q8 [facility] Last Admin: 05/16/22 05:42 Dose: 10 ml A/P Narrative A/P Narrative: A: *UTI(e.coli), complicated: *Sepsis w/Hyperlactatemia(improved): *Generalized weakness/deconditioning/falling: *N/V: resolved *Metabolic acidosis: improving *Hypokalemia/Hypomagnesemia.hyponatremia: *Pulmonary fibrosis: With exacerbation requiring oxygen *Acute hypoxic respite failure: 2/2 above -on 1-3L nc, poor reserve *DM2: *Depression/anxiety: Continue SSRI *Hypothyroidism: Continue levothyroxine *HLD: Continue statin P: -Continue cefepime >cipro -O2 supp and wean -IS/Acapella, nebs, RT, Budesonide nebs -Monitor UOP/renal function, fluid balance -Basal (Started low-dose and titrate up) and SSI -PT/OT -CM for placement needs -ppx: Lovenox Time Spent With Patient Time: Total time spent is greater than 50% in coordination of care (as documented) at patient's floor/unit and/or counseling patient:
[2022-05-16] MEDS: SERTRALINE 50 MG TABLET PO SCH (09:05)
[2022-05-16] MEDS: methylPREDNISolone SOD SUCC 40 MG/ML VIAL IV SCH (09:05)
[2022-05-16] MEDS: ENOXAPARIN 40 MG/0.4 ML SYRINGE SQ SCH (09:05)
[2022-05-16] MEDS: ATORVASTATIN 40 MG TABLET PO SCH (09:05)
[2022-05-16] MEDS: ACETAMINOPHEN 325 MG TABLET PO PRN (09:05)
[2022-05-16] MEDS: LEVOTHYROXINE 125 MCG TABLET PO SCH (09:06)
[2022-05-16] MEDS: DOCUSATE SODIUM 100 MG CAPSULE PO SCH (09:06)
[2022-05-16] MEDS: BUDESONIDE 0.5 MG/2 ML AMPUL.NEB NEB SCH (09:07)
[2022-05-16] MEDS: LEVALBUTEROL 1.25 MG/3 ML AMPUL.NEB NEB SCH (09:08)
[2022-05-16] MEDS: IPRATROPIUM 2.5 ML AMPUL.NEB NEB SCH (09:08)
== END 2022-05-16 15:30 | disposition home health service (06) | DRG 871 ==
LOC: ED 07:31 → ICU 14:30 → MEDSUR 05-15 11:51
PROVIDERS: ADMIT Student in an Organized Health Care Education/Training Program; ATTEND Internal Medicine